=== PATIENT | male | born 1990 | race Caucasian/White ===

== ENCOUNTER 2019-06-01 01:59 | Emergency (ER) | payer OTHER ==
[2019-06-01] MEDS ORDERED: NORMAL SALINE 1000 ML 1,000 ML IV ONE (02:23)
[2019-06-01] MEDS ORDERED: METOCLOPRAMIDE HCL INJ/PF 10 MG/2 ML SDV IV ONE (02:25)
[2019-06-01] MEDS ORDERED: DIPHENHYDRAMINE HCL 50 MG/ML VIAL IV ONE (02:25)
--- NOTE | 2019-06-01 03:22 | RADIOLOGY REPORT (SQ) ---
CLINICAL HISTORY: headache COMPARISON: None. TECHNIQUE: CT HEAD WITHOUT IV CONTRAST on 06/01/2019 2:23 AM CDT This exam was performed according to our departmental dose-optimization program, which includes automated exposure control, adjustment of the mA and/or kV according to patient size and/or use of iterative reconstruction technique. FINDINGS: There is no acute hemorrhage, mass effect or midline shift. Omer-white differentiation is preserved. There is no hydrocephalus. There is no significant volume loss for age. The calvarium is intact. Orbits and globes are unremarkable. There are mucous retention cysts in both maxillary sinuses. Mastoid air cells are clear. IMPRESSION: No acute intracranial findings.
[2019-06-01] MEDS ORDERED: KETOROLAC TROMETHAMINE INJ/PF 30 MG/1 ML SDV IV ONE (03:28)
--- NOTE | 2019-06-01 04:26 | ER Document Report ---
ED Headache - General Chief Complaint: Headache, Worst Ever Stated Complaint: HEADACHE Time Seen by Provider: 06/01/19 02:14 Primary Care Provider: MINNIE,XIMENA [Primary Care Provider] - Follow up as needed Notes: Patient is a 28-year-old male presents to the emergency department with a right sided temporal headache for approximately the last 2 hours. Patient voices it was a slow onset and has progressed to a steady pressure, stabbing sensation. Patient voices he does have a history of "something wrong with my frontal lobe." When asked to describe what he is talking about patient voices "I do not know exactly what it is, the neurologist tried to explain it, but I did not understand." Patient voices he is also prescribed trazodone but he does not take it. Patient denies any other medical problems, has no allergies. Patient's denying photophobia or nausea, vomiting. TRAVEL OUTSIDE OF THE [place] IN LAST 30 DAYS: No - Related Data Allergies/Adverse Reactions: No Known Allergies Allergy (Verified 06/01/19 02:14) Home Medications: motrin 800mg prn Past Medical History - General Information source: Patient - Social History Smoking Status: Current Every Day Smoker Family History: Hypertension Patient has suicidal ideation: No Patient has homicidal ideation: No - Past Medical History Cardiac Medical History: Reports: Hx Hypertension - Immunizations Immunizations up to date: Yes Hx Diphtheria, Pertussis, Tetanus Vaccination: Yes Review of Systems - Review of Systems Constitutional: denies: Fever, Weakness EENT: denies: Blurred vision, Double vision Cardiovascular: No symptoms reported Respiratory: No symptoms reported Gastrointestinal: No symptoms reported Genitourinary: No symptoms reported Male Genitourinary: No symptoms reported Musculoskeletal: No symptoms reported Skin: No symptoms reported Hematologic/Lymphatic: No symptoms reported Neurological/Psychological: See HPI Physical Exam - Vital signs Vitals: Temp Pulse Resp BP Pulse Ox 97.8 F 66 16 135/82 H 98 06/01/19 02:05 06/01/19 02:05 06/01/19 02:05 06/01/19 02:05 06/01/19 02:05 - Notes Notes: GENERAL: Alert, interacts well. No acute distress. HEAD: Normocephalic, atraumatic. EYES: Pupils equal, round, and reactive to light. Extraocular movements intact. No photophobia noted. ENT: Oral mucosa moist, tongue midline. NECK: Full range of motion. Supple. Trachea midline. No nuchal rigidity noted LUNGS: Clear to auscultation bilaterally, no wheezes, rales, or rhonchi. No respiratory distress. HEART: Regular rate and rhythm. No murmur ABDOMEN: Soft, non-tender. Non-distended. Bowel sounds present in all 4 quadrants. EXTREMITIES: Moves all 4 extremities spontaneously. No edema, normal radial and dorsalis pedis pulses bilaterally. No cyanosis. 5 out of 5 strength noted all 4 extremities. BACK: no cervical, thoracic, lumbar midline tenderness. No saddle anesthesia, normal distal neurovascular exam. NEUROLOGICAL: Alert and oriented x3. Normal speech. cranial nerves II through XII grossly intact. PSYCH: Normal affect, normal mood. SKIN: Warm, dry, normal turgor. No rashes or lesions noted. Course - Re-evaluation Re-evalutation: 06/01/19 04:24 Patient was initially treated with Benadryl and Reglan while awaiting CT results. CT ordered as patient again voiced "something is wrong with my frontal lobe." Patient voiced to triage nurse this was the "worst headache of his life." Patient does not voice that to me. States it was a slow onset And has progressively gotten worse. Head CT 06/01/19 02:23 IMPRESSION: No acute intracranial findings. After CT results come back negative I have ordered Toradol. Nurse brings my attention patient refuses Toradol. States his headache is now gone. I have gone to reassess the patient and he is sleeping comfortably, easily arousable to verbal stimuli. Patient is able to sit up in bed stating his headache is no longer hurts. Discussed with him close follow-up with primary care provider with close return precautions. Patient stable for discharge. - Vital Signs Vital signs: Temp Pulse Resp BP Pulse Ox 97.8 F 66 19 113/72 98 06/01/19 02:05 06/01/19 02:05 06/01/19 03:39 06/01/19 03:39 06/01/19 03:39 Discharge - Discharge Clinical Impression: Headache Qualifiers: Headache type: unspecified Headache chronicity pattern: acute headache Intractability: not intractable Qualified Code(s): R51 - Headache Condition: Stable Disposition: HOME, SELF-CARE Instructions: Use of Diphenhydramine, Headache ([facility]), Reglan ([facility]) Additional Instructions: As we discussed you have been seen and treated in the emergency department for generalized headache. Please make sure you follow-up with your primary care provider in the next 12 to 24 hours. Please also return to the emergency room should you have any concerns. Referrals: [facility] [Primary Care Provider] - Follow up as needed
[2019-06-01 04:50] VITALS: BP 111/77
== END 2019-06-01 04:50 | disposition home or self-care (01) ==
LOC: ER 01:59
DX: R51 Headache (principal); F17.200 Nicotine dependence, unspecified, uncomplicated; I10 Essential (primary) hypertension; Z79.1 Long term (current) use of non-steroidal anti-inflammatories (NSAID)
CPT/HCPCS: 99284; 96361; 96374; 96375; 70450; J1200; J2765; J7030